=== PATIENT | male | born 1980 | race Caucasian/White ===

== ENCOUNTER 2018-02-04 23:51 | Emergency (ER) | payer OTHER ==
[2018-02-05] MEDS ORDERED: LIDOCAINE 1%/EPI 1:100000 (20 ML MULTI DOSE VIAL) ONE (00:26)
[2018-02-05 00:27] VITALS: BP 127/74; PULSE 79; TEMP 97.6; BMI 37.4
[2018-02-05] MEDS ORDERED: TETANUS AND DIPHTHERIA TOXOID 0.5 ML DISP.SYRIN IM ONE (00:57)
--- NOTE | 2018-02-05 00:57 | PDOC ---
*Physical Exam - Vital Signs Last Vital Signs Temp Pulse Resp BP Pulse Ox 97.6 F 79 20 127/74 99 02/05/18 00:21 02/05/18 00:21 02/05/18 00:21 02/05/18 00:21 02/05/18 00:21 Medical Decision Making - Medical Decision Making 02/05/18 00:56 agree with care from AL Sullivan
--- NOTE | 2018-02-05 01:03 | PDOC ---
History of Present Illness - General Chief Complaint: Injury Stated Complaint: LEG INJURY Time Seen by Provider: 02/05/18 00:23 History Source: Patient Exam Limitations: No Limitations - History of Present Illness Initial Comments: CHIEF COMPLAINT: 37 y/o male with history of anxiety and insomnia here with a laceration to right knee. HISTORY OF PRESENT ILLNESS: the patient's states he was recently prescribed a different sleeping pill. After taking it tonight he started sleep walking and walked into a the corner of a wooden trunk with metal corners that they have at the foot of their bed. The patient does not remember any of this happening. The states there was blood everywhere. She denies head trauma. The patient is not on a blood thinner. Vital signs on arrival are within normal limits. REVIEW OF SYSTEMS: GENERAL/CONSTITUTIONAL: No fever/chills. No weakness. No weight change. MUSCULOSKELETAL: No joint or muscle swelling or pain. No neck or back pain. SKIN: +laceration to right knee. NEUROLOGIC: No headache, vertigo, loss of consciousness, or loss of sensation. PHYSICAL EXAM: VITAL_SIGNS: within normal limits GENERAL_APPEARANCE: alert, cooperative, moderate obvious discomfort with patient screaming out in pain. MENTAL_STATUS: speech clear, oriented X 3, responds appropriately to questions. NEURO: motor intact and sensory intact in injured extremity. EXTREMITIES: 5.5cm, deep, irregular laceration to right anterior knee with macerated distal portion. Minimal active bleeding. Full flexion and extension of right knee. SKIN: warm, dry, good color. Past History - Past Medical History Allergies/Adverse Reactions: Allergies Allergy/AdvReac Type Severity Reaction Status Date / Time No Known Drug Allergies Allergy Verified 02/05/18 00:21 Home Medications: Ambulatory Orders Lisdexamfetamine Dimesylate [Vyvanse] 50 mg PO DAILY 09/19/12 Quetiapine Fumarate [Seroquel -] 100 mg PO HS 09/19/12 Anemia: No Asthma: No Cancer: No Cardiac Disorders: No CVA: No COPD: No CHF: No Dementia: No Diabetes: No GI Disorders: No Disorders: No HTN: No Hypercholesterolemia: No Liver Disease: No Seizures: No Thyroid Disease: No - Surgical History Abdominal Surgery: No Appendectomy: Yes Cardiac Surgery: No Cholecystectomy: No Lung Surgery: No Neurologic Surgery: No Orthopedic Surgery: No - Immunization History Td Vaccination: Yes Immunization Up to Date: Yes - Suicide/Smoking/Psychosocial Hx Smoking Status: No Smoking History: Never smoked Have you smoked in the past 12 months: No Number of Cigarettes Smoked Daily: 15 Information on smoking cessation initiated: No 'Breaking Loose' booklet given: 09/22/12 Hx Alcohol Use: No Drug/Substance Use Hx: No Hx Substance Use Treatment: No *Physical Exam - Vital Signs Last Vital Signs Temp Pulse Resp BP Pulse Ox 97.6 F 79 20 127/74 99 02/05/18 00:21 02/05/18 00:21 02/05/18 00:21 02/05/18 00:21 02/05/18 00:21 Procedures - Laceration/Wound Repair Right Knee Wound Length: 5.0 to 7.5 cm Wound Explored: clean Wound's Depth, Shape: into muscle, irregular Irrigated w/ Saline: Yes Betadine Prep: Yes Anesthesia: 1% Lidocaine w/ Epi Amount of Anesthetic (ccs): 10 Wound Debrided: minimal Wound Repaired With: Sutures Suture Size/Type: 3:0 Number of Sutures: 10 Sterile Dressing Applied: Yes Progress: patient tolerated procedure well ED Treatment Course - RADIOLOGY Radiology Studies Ordered: Category Date Time Status KNEE 2 POS-RIGHT [RAD] Stat Radiology 02/05/18 00:57 Ordered Medical Decision Making - Medical Decision Making A/P: 37 y/o male with laceration to right knee. Patient is not UTD on tetanus. Plan is as follows: 1. xray 2. tetanus 3. lac repair Xray negative for fracture and foreign body. Lac repair without difficulty. Patient instructed to keep wound dry for 24 hours, then can wash gently. Instructed to return to the ER in 10-14 days for suture removal. Pt instructed to return to the ER immediately with any worsening or concerning symptoms. The patient verbalizes understanding of all instructions, has no further questions and is awaiting discharge. *DC/Admit/Observation/Transfer Diagnosis at time of Disposition: Laceration of knee Qualifiers: Encounter type: initial encounter Laterality: right Qualified Code(s): S81.011A - Laceration without foreign body, right knee, initial encounter - Discharge Dispostion Disposition: HOME Condition at time of disposition: Improved - Referrals - Patient Instructions Printed Discharge Instructions: DI for Laceration Repair -- Complex Suture Additional Instructions: Discharge instructions: -You were given a tetanus shot today; you are now up to date for 10 years -You had 10 stitches placed in your right knee -You can take 600-800mg of Advil every 8 hours with food for pain -Ice the area to minimize swelling -Keep area dry for 24 hours; then you can wash gently with soap and water -Return to the ER, any urgent care or your primary doctor's office to have stitches removed in 10-14 days -Return to the ER immediately with any worsening or concerning symptoms - Post Discharge Activity Forms/Work/School Notes: Back to Work
== END 2018-02-05 02:02 | disposition home or self-care (01) ==
LOC: JER 23:51
PROC: 3E0234Z Introduction of Serum, Toxoid and Vaccine into Muscle, Percutaneous Approach (ICD-10-PCS; principal; 2018-02-04)
PROC: 0KQS0ZZ Repair Right Lower Leg Muscle, Open Approach (ICD-10-PCS; 2018-02-04)
DX: S81.011A Laceration without foreign body, right knee, initial encounter (principal); W22.03XA Walked into furniture, initial encounter; Y93.01 Activity, walking, marching and hiking; Y92.013 Bedroom of single-family (private) house as the place of occurrence of the external cause; Y99.8 Other external cause status
CPT/HCPCS: 73560-TC-RT-FY; 99281-25

== ENCOUNTER 2018-02-15 12:48 | Emergency (ER) | payer OTHER ==
[2018-02-15 12:51] VITALS: BP 142/101; PULSE 83; TEMP 98.1; BMI 30.7
--- NOTE | 2018-02-15 13:17 | PDOC ---
Suture Removal/Wound Check HPI - History of Present Illness Chief Complaint: Suture/Staple Removal(Here) Stated Complaint: SUTURE REMOVAL Time Seen by Provider: 02/15/18 13:03 History Source: Yes: Patient Exam Limitations: Yes: No Limitations Treated at: [facility] Date of Last ED visit: 02/05/18 - Previous ED Treatment Tetanus Immunization: Yes: Given at last ED visit Past History - Past Medical History Allergies/Adverse Reactions: Allergies Allergy/AdvReac Type Severity Reaction Status Date / Time No Known Drug Allergies Allergy Verified 02/15/18 12:51 Home Medications: Ambulatory Orders Lisdexamfetamine Dimesylate [Vyvanse] 50 mg PO DAILY 09/19/12 Quetiapine Fumarate [Seroquel -] 100 mg PO HS 09/19/12 Anemia: No Asthma: No Cancer: No Cardiac Disorders: No CVA: No COPD: No CHF: No Dementia: No Diabetes: No GI Disorders: No Disorders: No HTN: No Hypercholesterolemia: No Liver Disease: No Seizures: No Thyroid Disease: No - Surgical History Abdominal Surgery: No Appendectomy: Yes Cardiac Surgery: No Cholecystectomy: No Lung Surgery: No Neurologic Surgery: No Orthopedic Surgery: No - Immunization History Td Vaccination: Yes Immunization Up to Date: Yes - Suicide/Smoking/Psychosocial Hx Smoking Status: No Smoking History: Never smoked Have you smoked in the past 12 months: Yes Number of Cigarettes Smoked Daily: 15 Information on smoking cessation initiated: No 'Breaking Loose' booklet given: 09/22/12 Hx Alcohol Use: Yes (SOCIALLY) Drug/Substance Use Hx: No Hx Substance Use Treatment: No Medical Decision Making - Medical Decision Making A/P: Patient seen here on 02/05 by myself with right leg laceration. Wound appears well healed. Removed 10 sutures. Applied steri strips. Suggested massaging with vitamin E oil to help with scar tissue and cover to prevent scar darkening from sun. Patient instructed to keep clean and dry. The patient verbalizes understanding of all instructions, has no further questions and is awaiting discharge. *DC/Admit/Observation/Transfer Diagnosis at time of Disposition: Encounter for removal of sutures - Discharge Dispostion Disposition: HOME Condition at time of disposition: Good - Referrals - Patient Instructions Printed Discharge Instructions: DI for Suture Removal Additional Instructions: Discharge Instructions: -Let steri strips fall off on their own -Massage scar with vitamin E oil to break up scar tissue -Keep scar out of the sun to prevent scar darkening -Return to the ER with any worsening or concerning symptoms - Post Discharge Activity
== END 2018-02-15 14:42 | disposition home or self-care (01) ==
LOC: JERFT 12:48
DX: Z48.02 Encounter for removal of sutures (principal)
CPT/HCPCS: 99281-25

== ENCOUNTER 2021-09-26 11:57 | Emergency (ER) | payer OTHER ==
[2021-09-26 12:26] VITALS: BMI 33.5
[2021-09-26 15:08] LABS: BASO % 0.6 % (0-2.0); EOS % 0.2 % (0-4.5); HEMATOCRIT 48.4 % (35.4-49); HEMOGLOBIN 16.4 GM/dL (11.7-16.9); LYMPH % 14.3 % (8-40); MCH 29.7 pg (25.7-33.7); MCHC 33.9 g/dl (32.0-35.9); MEAN CELL VOLUME 87.6 fl (80-96); MEAN PLT VOLUME 8.2 fl (7.5-11.1); NEUT % 77.9 % (42.8-82.8); PLATELET COUNT 224 10^3/uL (134-434); RBC 5.52 M/mm3 (4.00-5.60); RDW 13.6 % (11.9-15.9); WHITE BLOOD COUNT 9.8 K/mm3 (4.0-10.0)
[2021-09-26 15:36] LABS: CHLORIDE 103 mmol/L (98-107); SODIUM 137 mmol/L (136-145)
[2021-09-26 15:38] LABS: ALBUMIN 3.8 g/dl (3.4-5.0); CALCIUM 9.2 mg/dL (8.5-10.1)
[2021-09-26 15:40] LABS: ANION GAP 10 MMOL/L (8-16); CO2 24 mmol/L (21-32); GLUCOSE,RANDOM 104 mg/dL (74-106); MAGNESIUM 2.4 mg/dL (1.8-2.4)
[2021-09-26 15:42] LABS: CREATININE 0.9 mg/dL (0.55-1.3); SGOT/AST 20 U/L (15-37); SGPT/ALT 33 U/L (13-61)
[2021-09-26 15:45] LABS: ALK PHOS 76 U/L (45-117); BILIRUBIN,TOTAL 0.4 mg/dL (0.2-1); TOT PROT 7.7 g/dl (6.4-8.2)
[2021-09-26 15:56] VITALS: BP 157/98; PULSE 83; TEMP 97.8
== END 2021-09-26 16:01 | disposition home or self-care (01) ==
LOC: JER 11:57
DX: F41.0 Panic disorder [episodic paroxysmal anxiety] (principal)
CPT/HCPCS: 36415; 71046-TC-FY; 80053; 82550; 82553; 83735; 84484; 85025; 93005; 93010; 99285-25

== ENCOUNTER 2021-11-08 13:53 | Emergency (ER) | payer OTHER ==
[2021-11-08 13:58] VITALS: BP 168/104; PULSE 88; TEMP 98; BMI 32.1
[2021-11-08] MEDS ORDERED: DIPHTH,PERTUSS(ACELL),TET 0.5 ML DISP.SYRIN IM ONE ×2 (14:33→14:36)
== END 2021-11-08 15:19 | disposition home or self-care (01) ==
LOC: JERFT 13:53
PROC: 0HQFXZZ Repair Right Hand Skin, External Approach (ICD-10-PCS; principal; 2021-11-08)
PROC: 3E0234Z Introduction of Serum, Toxoid and Vaccine into Muscle, Percutaneous Approach (ICD-10-PCS; 2021-11-08)
DX: S61.012A Laceration without foreign body of left thumb without damage to nail, initial encounter (principal); W26.0XXA Contact with knife, initial encounter
CPT/HCPCS: 90715; 99284-25